=== PATIENT | female | born 1990 | race American Indian/Alaskan Native ===

== ENCOUNTER 2017-01-23 20:35 | Inpatient (IN) | payer MEDICAID ==
[2017-01-23] MEDS ORDERED: CERVIDIL VG ONE (21:50)
[2017-01-23] MEDS ORDERED: PHENERGAN PO PRN (21:50)
[2017-01-23] MEDS ORDERED: BRETHINE SUB-Q PRN (21:50)
[2017-01-23] MEDS ORDERED: NARCAN 0.4 MG/1 ML IV PRN (21:50)
[2017-01-23] MEDS ORDERED: ePHEDrine SULFATE IV PRN (21:50)
[2017-01-23] MEDS ORDERED: XYLOCAINE 2% INFILTRATI ONE (21:50)
[2017-01-23] MEDS ORDERED: SUBLIMAZE IV PRN (21:50)
[2017-01-23] MEDS ORDERED: BRETHINE IVP PRN (21:50)
[2017-01-23] MEDS ORDERED: MINERAL OIL PO PRN (21:50)
[2017-01-23] MEDS ORDERED: PITOCin/NS 20 UNIT/1000ML DRIP 20 UNITS/1,000 ML BAG IV SCH (22:00)
--- NOTE | 2017-01-23 22:07 | History and Physical Report ---
History of Present Illness Date of examination: 01/23/17 Date of admission: 01/23/17 20:38 Chief complaint: Incution of labor for postdates History of present illness: This is a 26 yo at 41weeks admitted for induction of labor for postdates. OB problem list 1. anemia -on iron 2. hx of placenta previa in 10/19 resolved per patient 3. UTI 4. THC in pergnancy 5. Asthma -mild 6. GBS + labs O+ ant neg H/H 10. pap normal Rubella non imm RPR neg HIV neg CF neg HGB electo AA glen neg chlam neg US 08/16 single viable IUP EGA 18 weeks final caitlin 01/16/17 anterior placenta 09/2016 pa EGA 21+1 weeks EFW 32% antaomy wnl left ovarian cyst h/h 10.330.8 DM 115 HIV neg PLT 224 RPR neg 12/19/16 [place] 36 weesk 35+4 weeks EFW 2763 BPP 8/8 GBS + Past History Past Medical History: asthma Past Surgical History: other (ovarian cystectomy ) [employer] History: abnormal PAP smear, chlamydia Family/Genetic History: none Social history: smoking - Obstetrical History Expected Date of Delivery: 01/16/17 Actual Gestation: 41 Week(s) 0 Day(s) : 2 Para: 2 Hx # Term Pregnancies: 1 Number of Pregnancies: 0 Spontaneous Abortions: 0 Induced : 0 Number of Living Children: 1 Medications and Allergies Allergies Allergy/AdvReac Type Severity Reaction Status Date / Time latex Allergy Rash Verified 04/26/15 18:24 Home Medications Medication Instructions Recorded Confirmed Last Taken Type HYDROcodone/APAP 7.5-325 [[place] 1 each PO Q6HR PRN #25 tablet 09/10/14 05/04/15 05/03/15 Rx 7.5/325 mg] ALBUTEROL Inhaler [Proair] 2 puff IH QID PRN 04/26/15 05/04/15 05/02/15 History Omeprazole [PriLOSEC] 20 mg PO BID 04/26/15 05/04/15 05/03/15 History Sucralfate [Carafate] 1 gm PO Q6HR 04/26/15 05/04/15 05/03/15 History Ibuprofen [Motrin] 800 mg PO Q8H PRN #60 tablet 05/04/15 Unknown Rx Oxycodone HCl/Acetaminophen 1 each PO Q6HR PRN #30 tablet 05/04/15 Unknown Rx [Percocet 7.5-325 mg] Review of Systems All systems: negative Constitutional: weight gain Eyes: deferred Ears, nose, mouth and throat: deferred Breasts: deferred Genitourinary: deferred, vaginal bleeding, leakage of fluid, dysuria, pelvic pain Rectal Exam: deferred Integumentary: deferred - Vital Signs Vital signs: Vital Signs Pulse BP Pulse Ox 94 H 117/65 99 01/23/17 21:00 01/23/17 21:00 01/23/17 21:00 Temp Pulse Resp BP Pulse Ox 92 H 117/65 98 01/23/17 21:35 01/23/17 21:00 01/23/17 21:35 - Physical Exam Breasts: Positive: normal Cardiovascular: Regular rate, Normal S1, Normal S2 Lungs: Positive: Clear to auscultation, Normal air movement Abdomen: Positive: normal appearance, soft, normal bowel sounds Genitourinary (Female): Positive: normal external genitalia, normal perenium Vulva: both: normal Vagina: Positive: normal moisture Uterus: Positive: enlarged Anus/Rectum: Positive: normal perianal skin Extremities: Positive: normal Deep Tendon Reflex Grade: Normal +2 - Obstetrical FHR: category 1 Uterine Contraction Monitor Mode: External Cervical Dilatation: 0 Cervical Effacement Percentage: 0 station: -4 Uterine Contraction Pattern: Irregular Uterine Tone Measurement Phase: Contraction Uterine Contraction Intensity: Mild Results All other labs normal.
[2017-01-23 22:47] LABS: Hematocrit 29.9 % (30.3-42.9); Mean Corpuscular HGB Conc 33 % (30-34); Mean Corpuscular Hemoglobin 30 pg (28-32); Mean Corpuscular Volume 91 fl (79-97); Platelet Count 234 K/mm3 (140-440); Red Cell Distribution Width 13.6 % (13.2-15.2); White Blood Count 10.2 K/mm3 (4.5-11.0)
[2017-01-23] MEDS: LACTATED RINGERS 1,000 ML IV SCH (23:35)
[2017-01-24] MEDS ORDERED: POLYCILLIN/NS 1 GM/50 ML 1 GM/50 ML BAG IV SCH (02:00)
[2017-01-24] MEDS: LACTATED RINGERS 1,000 ML IV SCH ×2 (04:50→05:35)
[2017-01-24] MEDS ORDERED: ePHEDrine SULFATE IV PRN (06:02)
[2017-01-24] MEDS ORDERED: BENADRYL IV PRN (06:02)
--- NOTE | 2017-01-24 06:02 | Anesthesia Consultation ---
Anesthesia Consult and Med Hx Date of service: 01/24/17 - Airway Anesthetic Teeth Evaluation: Good ROM Head & Neck: Adequate Mental/Hyoid Distance: Adequate Intubation Access Assessment: Probably Good - Pre-Operative Health Status ASA Pre-Surgery Classification: ASA3, Emergency Proposed Anesthetic Plan: Epidural, Spinal - Pulmonary Hx Asthma: Yes (last used inhaler 2 weeks ago; used past week-end) COPD: No Hx Pneumonia: No - Cardiovascular System Hx Hypertension: No - Central Nervous System Hx Seizures: No Hx Psychiatric Problems: Yes (Depression) - Gastrointestinal Hx Gastroesophageal Reflux Disease: Yes (out of meds, can lie flat without reflux; meds hellp) - Endocrine Hx Renal Disease: No Hx End Stage Renal Disease: No Hx Hypothyroidism: No Hx Hyperthyroidism: No - Hematic Hx Anemia: Yes Hx Sickle Cell Disease: No - Other Systems Hx Alcohol Use: Yes Hx Cancer: No
[2017-01-24] MEDS ORDERED: fentaNYL-BUPIV 2 MCG/ML-0.125% 200 MCG/100 ML BAG EPIDURAL SCH (07:00)
[2017-01-24] MEDS ORDERED: POLYCILLIN/NS 2 GM/100 ML 2 GM/100 ML BAG IV ONE (07:06)
[2017-01-24] MEDS ORDERED: ZOFRAN ONE (07:17)
[2017-01-24] MEDS: PITOCin/NS 30 UNIT/500ML 30 UNITS/500 ML BAG IV SCH ×4 (07:28→09:19)
--- NOTE | 2017-01-24 07:55 | Progress Note ---
Assessment and Plan A: IUP @ 41.1 Postdates Induction +GBS untreated Active Labor P: AROM EFW 7-5lbs Active mikael;t Subjective - Subjective Date of service: 01/24/17 Patient reports: movement normal, contractions, no new complaints, no loss of fluid, no vaginal bleeding Objective - Vital Signs Vital Signs: Vital Signs - 12hr 01/23/17 01/23/17 01/23/17 21:00 21:05 21:10 Temperature 98.4 F Pulse Rate 105 H 97 H 100 H Pulse Rate [ 94 H Right From Monitor] Respiratory 18 Rate Blood Pressure 117/65 Blood Pressure 117/65 [Right Arm] O2 Sat by Pulse 99 100 99 Oximetry 01/23/17 01/23/17 01/23/17 21:15 21:20 21:25 Temperature Pulse Rate 94 H 94 H 96 H Pulse Rate [ Right From Monitor] Respiratory Rate Blood Pressure Blood Pressure [Right Arm] O2 Sat by Pulse 99 99 99 Oximetry 01/23/17 01/23/17 01/23/17 21:30 21:35 23:13 Temperature Pulse Rate 102 H 92 H 95 H Pulse Rate [ Right From Monitor] Respiratory Rate Blood Pressure 120/63 Blood Pressure [Right Arm] O2 Sat by Pulse 98 98 100 Oximetry 01/23/17 01/23/17 01/23/17 23:18 23:23 23:28 Temperature Pulse Rate 96 H 98 H 91 H Pulse Rate [ Right From Monitor] Respiratory Rate Blood Pressure Blood Pressure [Right Arm] O2 Sat by Pulse 100 99 99 Oximetry 01/23/17 01/23/17 01/23/17 23:33 23:38 23:42 Temperature Pulse Rate 89 95 H 100 H Pulse Rate [ Right From Monitor] Respiratory Rate Blood Pressure 104/65 Blood Pressure [Right Arm] O2 Sat by Pulse 98 99 Oximetry 01/23/17 01/23/17 01/23/17 23:43 23:48 23:53 Temperature Pulse Rate 104 H 100 H 112 H Pulse Rate [ Right From Monitor] Respiratory Rate Blood Pressure Blood Pressure [Right Arm] O2 Sat by Pulse 98 98 100 Oximetry 01/23/17 01/24/17 01/24/17 23:58 00:03 00:08 Temperature Pulse Rate 102 H 89 91 H Pulse Rate [ Right From Monitor] Respiratory Rate Blood Pressure Blood Pressure [Right Arm] O2 Sat by Pulse 99 99 100 Oximetry 01/24/17 01/24/17 01/24/17 00:12 00:13 00:18 Temperature Pulse Rate 85 93 H 94 H Pulse Rate [ Right From Monitor] Respiratory Rate Blood Pressure 95/53 Blood Pressure [Right Arm] O2 Sat by Pulse 99 98 Oximetry 01/24/17 01/24/17 01/24/17 00:23 00:28 00:33 Temperature Pulse Rate 95 H 94 H 96 H Pulse Rate [ Right From Monitor] Respiratory Rate Blood Pressure Blood Pressure [Right Arm] O2 Sat by Pulse 98 98 98 Oximetry 01/24/17 01/24/17 01/24/17 00:38 00:42 00:43 Temperature Pulse Rate 93 H 92 H 95 H Pulse Rate [ Right From Monitor] Respiratory Rate Blood Pressure 118/56 Blood Pressure [Right Arm] O2 Sat by Pulse 98 97 Oximetry 01/24/17 01/24/17 01/24/17 00:48 00:53 00:58 Temperature Pulse Rate 92 H 93 H 89 Pulse Rate [ Right From Monitor] Respiratory Rate Blood Pressure Blood Pressure [Right Arm] O2 Sat by Pulse 97 97 99 Oximetry 01/24/17 01/24/17 01/24/17 01:00 01:03 01:08 Temperature 98.1 F Pulse Rate 91 H 95 H Pulse Rate [ Right From Monitor] Respiratory Rate Blood Pressure Blood Pressure [Right Arm] O2 Sat by Pulse 97 97 Oximetry 01/24/17 01/24/17 01/24/17 01:11 01:13 01:18 Temperature Pulse Rate 87 98 H 95 H Pulse Rate [ Right From Monitor] Respiratory Rate Blood Pressure 94/53 Blood Pressure [Right Arm] O2 Sat by Pulse 96 97 Oximetry 01/24/17 01/24/17 01/24/17 01:23 01:28 01:33 Temperature Pulse Rate 90 95 H 90 Pulse Rate [ Right From Monitor] Respiratory Rate Blood Pressure Blood Pressure [Right Arm] O2 Sat by Pulse 97 98 98 Oximetry 01/24/17 01/24/17 01/24/17 01:38 01:48 01:53 Temperature Pulse Rate 96 H 89 88 Pulse Rate [ Right From Monitor] Respiratory Rate Blood Pressure 113/67 Blood Pressure [Right Arm] O2 Sat by Pulse 98 100 98 Oximetry 01/24/17 01/24/17 01/24/17 01:58 02:03 02:08 Temperature Pulse Rate 93 H 89 96 H Pulse Rate [ Right From Monitor] Respiratory Rate Blood Pressure Blood Pressure [Right Arm] O2 Sat by Pulse 99 98 99 Oximetry 01/24/17 01/24/17 01/24/17 02:13 02:18 02:23 Temperature Pulse Rate 100 H 93 H 87 Pulse Rate [ Right From Monitor] Respiratory Rate Blood Pressure Blood Pressure [Right Arm] O2 Sat by Pulse 97 98 99 Oximetry 01/24/17 01/24/17 01/24/17 02:28 02:33 02:42 Temperature Pulse Rate 82 88 92 H Pulse Rate [ Right From Monitor] Respiratory Rate Blood Pressure Blood Pressure [Right Arm] O2 Sat by Pulse 97 98 100 Oximetry 01/24/17 01/24/17 01/24/17 02:47 02:52 02:56 Temperature Pulse Rate 86 82 61 Pulse Rate [ Right From Monitor] Respiratory Rate Blood Pressure Blood Pressure [Right Arm] O2 Sat by Pulse 98 99 87 Oximetry 01/24/17 01/24/17 01/24/17 02:57 03:02 03:03 Temperature Pulse Rate 88 87 Pulse Rate [ Right From Monitor] Respiratory 20 Rate Blood Pressure Blood Pressure [Right Arm] O2 Sat by Pulse 100 97 Oximetry 01/24/17 01/24/17 01/24/17 03:07 03:12 03:17 Temperature Pulse Rate 102 H 94 H 87 Pulse Rate [ Right From Monitor] Respiratory Rate Blood Pressure Blood Pressure [Right Arm] O2 Sat by Pulse 97 97 96 Oximetry 01/24/17 01/24/17 01/24/17 03:22 03:27 03:32 Temperature Pulse Rate 91 H 93 H 81 Pulse Rate [ Right From Monitor] Respiratory Rate Blood Pressure Blood Pressure [Right Arm] O2 Sat by Pulse 96 97 97 Oximetry 01/24/17 01/24/17 01/24/17 03:37 03:38 03:42 Temperature Pulse Rate 89 80 92 H Pulse Rate [ Right From Monitor] Respiratory Rate Blood Pressure 104/57 Blood Pressure [Right Arm] O2 Sat by Pulse 96 97 Oximetry 01/24/17 01/24/17 01/24/17 03:47 03:52 03:57 Temperature Pulse Rate 82 85 87 Pulse Rate [ Right From Monitor] Respiratory Rate Blood Pressure Blood Pressure [Right Arm] O2 Sat by Pulse 97 97 96 Oximetry 01/24/17 01/24/1701/24/17 04:02 04:07 04:12 Temperature Pulse Rate 87 83 86 Pulse Rate [ Right From Monitor] Respiratory Rate Blood Pressure Blood Pressure [Right Arm] O2 Sat by Pulse 95 96 99 Oximetry 01/24/17 01/24/17 01/24/17 04:17 04:23 04:28 Temperature Pulse Rate 96 H 82 83 Pulse Rate [ Right From Monitor] Respiratory Rate Blood Pressure Blood Pressure [Right Arm] O2 Sat by Pulse 100 100 100 Oximetry 01/24/17 01/24/17 01/24/17 04:33 04:38 04:40 Temperature Pulse Rate 70 70 76 Pulse Rate [ Right From Monitor] Respiratory Rate Blood Pressure 117/76 Blood Pressure [Right Arm] O2 Sat by Pulse 100 100 Oximetry 01/24/17 01/24/17 01/24/17 04:43 04:48 04:53 Temperature Pulse Rate 78 77 78 Pulse Rate [ Right From Monitor] Respiratory Rate Blood Pressure Blood Pressure [Right Arm] O2 Sat by Pulse 100 100 100 Oximetry 01/24/17 01/24/17 01/24/17 04:58 05:03 05:11 Temperature Pulse Rate 81 78 78 Pulse Rate [ Right From Monitor] Respiratory Rate Blood Pressure Blood Pressure [Right Arm] O2 Sat by Pulse 100 100 100 Oximetry 01/24/17 01/24/17 01/24/17 05:16 05:21 05:26 Temperature Pulse Rate 83 84 79 Pulse Rate [ Right From Monitor] Respiratory Rate Blood Pressure Blood Pressure [Right Arm] O2 Sat by Pulse 100 100 100 Oximetry 01/24/17 01/24/17 01/24/17 05:31 05:36 05:39 Temperature Pulse Rate 81 84 82 Pulse Rate [ Right From Monitor] Respiratory Rate Blood Pressure 147/69 Blood Pressure [Right Arm] O2 Sat by Pulse 99 100 Oximetry 01/24/17 01/24/17 01/24/17 05:40 05:41 05:42 Temperature Pulse Rate 83 74 75 Pulse Rate [ Right From Monitor] Respiratory Rate Blood Pressure 121/59 Blood Pressure [Right Arm] O2 Sat by Pulse 91 100 Oximetry 01/24/17 01/24/17 01/24/17 05:44 05:46 05:48 Temperature Pulse Rate 81 81 70 Pulse Rate [ Right From Monitor] Respiratory Rate Blood Pressure 110/58 108/58 108/61 Blood Pressure [Right Arm] O2 Sat by Pulse 100 Oximetry 01/24/17 01/24/17 01/24/17 05:50 05:51 05:52 Temperature Pulse Rate 73 73 72 Pulse Rate [ Right From Monitor] Respiratory Rate Blood Pressure 108/61 105/61 Blood Pressure [Right Arm] O2 Sat by Pulse 100 Oximetry 01/24/17 01/24/17 01/24/17 05:54 05:56 06:00 Temperature Pulse Rate 71 86 67 Pulse Rate [ Right From Monitor] Respiratory Rate Blood Pressure 111/60 105/57 106/58 Blood Pressure [Right Arm] O2 Sat by Pulse 100 84 Oximetry 01/24/17 01/24/17 01/24/17 06:01 06:06 06:11 Temperature Pulse Rate 71 80 72 Pulse Rate [ Right From Monitor] Respiratory Rate Blood Pressure Blood Pressure [Right Arm] O2 Sat by Pulse 100 99 100 Oximetry 01/24/17 01/24/17 01/24/17 06:16 06:18 06:20 Temperature Pulse Rate 80 75 64 Pulse Rate [ Right From Monitor] Respiratory Rate Blood Pressure 155/56 116/68 Blood Pressure [Right Arm] O2 Sat by Pulse 100 Oximetry 01/24/17 01/24/17 01/24/17 06:21 06:25 06:26 Temperature 96.9 F L Pulse Rate 77 68 Pulse Rate [ Right From Monitor] Respiratory Rate Blood Pressure Blood Pressure [Right Arm] O2 Sat by Pulse 100 100 Oximetry 01/24/17 01/24/17 01/24/17 06:31 06:36 06:41 Temperature Pulse Rate 79 70 75 Pulse Rate [ Right From Monitor] Respiratory Rate Blood Pressure 119/75 Blood Pressure [Right Arm] O2 Sat by Pulse 99 99 98 Oximetry 01/24/17 01/24/17 01/24/17 06:46 06:51 06:56 Temperature Pulse Rate 72 84 73 Pulse Rate [ Right From Monitor] Respiratory Rate Blood Pressure 110/68 Blood Pressure [Right Arm] O2 Sat by Pulse 100 99 100 Oximetry 01/24/17 01/24/17 01/24/17 07:02 07:04 07:07 Temperature Pulse Rate 84 72 86 Pulse Rate [ Right From Monitor] Respiratory Rate Blood Pressure 112/66 109/63 Blood Pressure [Right Arm] O2 Sat by Pulse 100 100 Oximetry 01/24/17 01/24/17 01/24/17 07:12 07:16 07:17 Temperature Pulse Rate 81 92 H 88 Pulse Rate [ Right From Monitor] Respiratory Rate Blood Pressure 113/73 Blood Pressure [Right Arm] O2 Sat by Pulse 100 100 Oximetry 01/24/17 01/24/17 01/24/17 07:22 07:28 07:31 Temperature 97.7 F Pulse Rate 74 86 Pulse Rate [ 78 Right From Monitor] Respiratory 18 Rate Blood Pressure Blood Pressure 113/73 [Right Arm] O2 Sat by Pulse 100 100 100 Oximetry 01/24/17 01/24/17 01/24/17 07:32 07:33 07:37 Temperature Pulse Rate 83 89 91 H Pulse Rate [ Right From Monitor] Respiratory Rate Blood Pressure 109/59 Blood Pressure [Right Arm] O2 Sat by Pulse 100 100 Oximetry 01/24/17 07:43 Temperature Pulse Rate 75 Pulse Rate [ Right From Monitor] Respiratory Rate Blood Pressure Blood Pressure [Right Arm] O2 Sat by Pulse 100 Oximetry - Exam Abdomen: Present: normal appearance, soft, normal bowel sounds Vulva: both: normal Uterus: Present: normal, firm. Absent: bogginess, tenderness FHR: auscultation normal, category 1 FHR comments: category 1 Uterine Contraction Monitor Mode: External Cervical Dilatation: 4 Cervical Effacement Percentage: 80 station: -3 Uterine Contraction Frequency (min): 4 Uterine Contraction Pattern: Regular Uterine Tone Measurement Phase: Resting Uterine Contraction Intensity: Moderate - Labs Labs: Abnormal Labs 01/23/17 21:55 RBC 3.30 L Hgb 10.0 L Hct 29.9 L Laboratory Results - last 24 hr 01/23/17 01/23/17 21:55 21:55 WBC 10.2 RBC 3.30 L Hgb 10.0 L Hct 29.9 L MCV 91 MCH 30 MCHC 33 RDW 13.6 Plt Count 234 Blood Type O POSITIVE Antibody Screen Negative
--- NOTE | 2017-01-24 10:20 | Ultrasound Report ---
BIOPHYSICAL PROFILE: 2 - breathing movements 2 - movements 2 - posture and tone 2 - Qualitative amniotic fluid volume 8 - TOTAL SCORE OF POSSIBLE 8 Heart Rate (bpm) 145 Gestation: Single Position: Cephalic Amniotic Fluid: SOLIS = 24.6 cm Placenta: Anterior Placental Grade: 2 Heart Rate: 150 BPM Cervical length: 3.4 cm (Normal > 3 cm) It is too early for a anatomical survey BPD: 9.5 cm = 38 w 6 d HC: 35.02 cm = 40 w 5 d AC: 31.3 cm = 41 w 2 d FL: 7.7 cm = 39 w 5 d HC/AC Ratio: 0.94 Cephalic Index: 79.5 Estimated Weight: 4117 grams LMP: 04/11/16 Clinical age = 41 w 0 d EDC: 01/16/17 US Gest. Age = 40 w 1 d EDC: T
--- NOTE | 2017-01-24 13:38 | Procedure Note ---
OB Delivery Note - Delivery Date of Delivery: 01/24/17 (8-12oz male @ 1202) Surgeon: JACLYN WHEELER Estimated blood loss: 300cc - Vaginal Delivery presentation: vertex Delivery position: OA Intrapartum events: none Delivery induction: cervidil Delivery augmentation: rupture of membranes, pitocin Delivery monitor: external FHT, external uterine Route of delivery: Delivery placenta: spontaneous Delivery cord: 3 umbilical vessels Episiotomy: none Delivery laceration: other (left labia, not bleeding not repaired) Anesthesia: epidural - Infant A at 1 minute: 8 at 5 minutes: 9 Infant Gender: Male (Pushed for viable male infant. Dried, buld suctioned, placed skin to skin. Spont. placenta, Pitocin infusing. Fundus messaged firm, 3 below U, ML. Bleeding scant. Pressure applied to laceration for hemostatis. EBL 300. +GBS adequate treatment prior to delivery.)
[2017-01-24] MEDS ORDERED: BENADRYL PO PRN (13:40)
[2017-01-24] MEDS ORDERED: PHENERGAN PO PRN (13:40)
[2017-01-24] MEDS ORDERED: ZOFRAN IV PRN (13:40)
[2017-01-24] MEDS ORDERED: NORCO 5/325 PO PRN ×2 (13:40→17:27)
[2017-01-24] MEDS ORDERED: TUCKS PAD TP PRN (13:40)
[2017-01-24] MEDS ORDERED: TYLENOL PO PRN (13:40)
[2017-01-24] MEDS ORDERED: LANSINOH TP PRN (13:40)
[2017-01-24] MEDS ORDERED: DULCOLAX PR PRN (13:40)
[2017-01-24] MEDS ORDERED: PHENERGAN PR PRN (13:40)
[2017-01-24] MEDS ORDERED: MILK OF MAGNESIA PO PRN (13:40)
[2017-01-24] MEDS ORDERED: DERMOPLAST TP PRN (13:40)
[2017-01-24] MEDS ORDERED: SODIUM CHLORIDE FLUSH SYRINGE 10 ML IV NR (14:00)
[2017-01-24] MEDS ORDERED: METHERGINE IM ONE (17:21)
[2017-01-24] MEDS ORDERED: CYTOTEC PR ONE (17:21)
[2017-01-24] MEDS ORDERED: TORADOL ONE (17:53)
[2017-01-24] MEDS ORDERED: PITOCIN IV SCH (18:00)
[2017-01-24] MEDS ORDERED: D5LR IV SCH (18:00)
[2017-01-24] MEDS ORDERED: TORADOL IV ONE (18:16)
--- NOTE | 2017-01-24 18:27 | Event Note ---
Date: 01/24/17 Called by RN reporting patient having heavy vaginal bleeding and passage of clots. Ambulated to bathroom and voided x 2. Arrived at BS patient stable, denies syncope or vertigo. On exam lochia heavy. FF right of U and 2 above. Vaginal exam, multiple moderate sized clots successfully expressed. FF @ U, ML after expression. patient up to void. Continues to be asymptomatic. Pitocin infusing IV, Methergine 0.2mg given IM, Cytotec 800mcg TN per RN given. will start Methergine po and get stat H/H>
[2017-01-24] MEDS ORDERED: MORPHINE IV ONE (19:00)
[2017-01-24 19:08] LABS: Hematocrit 27.6 % (30.3-42.9); Hemoglobin 8.9 gm/dl (10.1-14.3)
[2017-01-24] MEDS: MOTRIN PO SCH ×2 (19:09→20:00)
[2017-01-24] MEDS: PERCOCET 5/325 PO PRN (22:14)
[2017-01-24] MEDS: FEOSOL PO SCH ×2 (22:15→23:50)
[2017-01-24] MEDS: COLACE PO SCH (22:15)
[2017-01-25] MEDS: METHERGINE PO SCH ×3 (02:42→19:00)
[2017-01-25] MEDS: PERCOCET 5/325 PO PRN ×2 (02:49→16:30)
[2017-01-25] MEDS ORDERED: BOOSTRIX IM ONE (06:00)
[2017-01-25] MEDS ORDERED: M-M-R II VACCINE SUB-Q ONE (06:00)
--- NOTE | 2017-01-25 07:48 | Progress Note ---
Assessment and Plan PPD#1 s/p with PP hemorrhage asymptomatic acute anemia hgb 10-8.9-8.0 stable bottle feeding rh+ no rhogam indicated pain 07/14 percocet not working ( all to motrin) change to hydromorphone 2mg q4 continue PP course decreased bleeding ( uterus firm below umbilicus ) consdier d/c home tomorrow Subjective - Subjective Date of service: 01/25/17 Principal diagnosis: s/p PPD#1 Interval history: This is a 26 yo at 41weeks admitted for induction of labor for postdates. OB problem list 1. anemia -on iron 2. hx of placenta previa in 10/19 resolved per patient 3. UTI 4. THC in pergnancy 5. Asthma -mild 6. GBS + labs O+ ant neg H/H 10. pap normal Rubella non imm RPR neg HIV neg CF neg HGB electo AA glen neg chlam neg US 08/16 single viable IUP EGA 18 weeks final caitlin 01/16/17 anterior placenta 09/2016 pa EGA 21+1 weeks EFW 32% antaomy wnl left ovarian cyst h/h 10.3/30.8 DM 115 HIV neg PLT 224 RPR neg 12/19/16 [place] 36 weesk 35+4 weeks EFW 2763 BPP 8 GBS + Patient reports: appetite normal, voiding normally, pain well controlled, flatus , ambulating normally [place]: doing well Objective - Vital Signs Latest vital signs: Vital Signs Temp Pulse Pulse Resp BP BP Pulse Ox 01/25/17 02:49 18 01/25/17 00:00 98.8 F 72 20 107/52 01/24/17 22:14 18 01/24/17 20:00 99.4 F 80 20 121/72 01/24/17 17:10 98.2 F 68 18 126/77 01/24/17 13:25 98.1 F 78 16 118/76 01/24/17 12:50 84 113/60 01/24/17 12:27 97.6 F 101/57 01/24/17 12:20 85 96/51 01/24/17 12:06 85 101/57 01/24/17 11:59 90 100 01/24/17 11:53 118 H 100 01/24/17 11:51 96 H 108/71 01/24/17 11:48 96 H 100 01/24/17 11:43 86 100 01/24/17 11:38 92 H 100 01/24/17 11:33 81 100 01/24/17 11:28 95 H 100 01/24/17 11:23 85 100 01/24/17 11:21 86 109/57 83 L 01/24/17 11:18 84 100 01/24/17 11:13 87 100 01/24/17 11:08 82 100 01/24/17 11:03 79 100 01/24/17 10:58 84 100 01/24/17 10:53 79 100 01/24/17 10:51 78 108/59 01/24/17 10:48 86 100 01/24/17 10:43 82 100 01/24/17 10:38 79 100 01/24/17 10:33 79 100 01/24/17 10:28 82 100 01/24/17 10:23 80 100 01/24/17 10:21 81 102/60 01/24/17 10:18 83 99 01/24/17 10:13 71 100 01/24/17 10:08 75 99 01/24/17 10:03 74 98 01/24/17 09:58 68 98 01/24/17 09:53 72 99 01/24/17 09:51 73 97/55 01/24/17 09:48 75 99 01/24/17 09:43 73 99 01/24/17 09:38 80 99 01/24/17 09:33 70 99 01/24/17 09:28 74 99 01/24/17 09:23 74 100 01/24/17 09:22 67 90/52 01/24/17 09:18 74 98 01/24/17 09:13 88 99 01/24/17 09:08 79 98 01/24/17 09:02 74 97 01/24/17 08:58 75 98 01/24/17 08:53 75 98 01/24/17 08:48 79 98 01/24/17 08:45 75 93/52 01/24/17 08:43 77 98 01/24/17 08:41 71 95/53 01/24/17 08:38 71 99 01/24/17 08:34 84 76/47 01/24/17 08:33 75 99 01/24/17 08:32 75 88/52 01/24/17 08:28 76 98 01/24/17 08:23 76 98 01/24/17 08:18 74 98 01/24/17 08:16 72 98/56 01/24/17 08:13 82 100 01/24/17 08:08 71 100 01/24/17 08:03 68 100 01/24/17 08:01 69 95/55 01/24/17 07:58 90 100 01/24/17 07:53 85 100 01/24/17 07:48 88 100 01/24/17 07:47 86 107/55 01/24/17 07:43 75 100 Intake and Output 01/24/17 01/25/17 01/25/17 22:59 06:59 14:59 Intake Total 870 875 Output Total 700 400 Balance 170 475 Intake: IV 310 635 D5lr 1,000 ml @ 125 mls/ 310 635 hr IV DIRECT SHANICE with PITOCin 20 UNIT Rx#: [id number] Oral 560 240 Output: Urine 700 400 Void 700 400 Other: Total, Intake Amount 200 240 Total, Output Amount 300 400 # Voids Void 1 1 - Exam Breasts: Present: normal Cardiovascular: Present: Regular rate, Normal S1 Lungs: Present: Clear to auscultation, Normal air movement Abdomen: Present: normal appearance, soft, normal bowel sounds. Absent: distention, tenderness Vulva: both: normal Uterus: Present: normal, firm, fundal height below umbilicus Extremities: Present: normal Deep Tendon Reflex Grade: Normal +2 - Labs Labs: Abnormal lab results 01/24/17 01/25/17 Range/Units 18:34 06:14 Hgb 8.9 L 8.0 L (10.1-14.3) gm/dl Hct 27.6 L 25.0 L (30.3-42.9) %
[2017-01-25] MEDS: FEOSOL PO SCH ×2 (08:39→14:14)
[2017-01-25] MEDS: DILAUDID PO PRN ×4 (08:39→20:43)
--- NOTE | 2017-01-25 09:33 | Progress Note ---
Subjective Date of service: 01/25/17 Principal diagnosis: s/p PPD#1 Interval history: 1st day after normal vaginal delivery Patient is in the bed, comfortable. Pain is controlled with pain meds. Ambulated well. No residual neurological deficit. No anesthesia complications Objective - Constitutional Vitals: Vital Signs - 12hr 01/24/17 01/25/17 01/25/17 22:14 00:00 02:49 Temperature 98.8 F Pulse Rate [ 72 Right From Monitor] Pulse Rate [ Right Radial] Respiratory 18 20 18 Rate Blood Pressure 107/52 [Right Arm] 01/25/17 08:33 Temperature 98.1 F Pulse Rate [ Right From Monitor] Pulse Rate [ 74 Right Radial] Respiratory 18 Rate Blood Pressure 108/60 [Right Arm] - Labs CBC & Chem 7: 01/25/17 06:14 Labs: Abnormal lab results 01/24/17 01/25/17 Range/Units 18:34 06:14 Hgb 8.9 L 8.0 L (10.1-14.3) gm/dl Hct 27.6 L 25.0 L (30.3-42.9) %
[2017-01-25] MEDS: COLACE PO SCH (10:47)
[2017-01-26] MEDS: METHERGINE PO SCH ×2 (00:57→10:28)
[2017-01-26] MEDS: FEOSOL PO SCH ×2 (00:58→10:25)
[2017-01-26] MEDS: DILAUDID PO PRN ×2 (00:58→06:30)
[2017-01-26] MEDS: COLACE PO SCH ×2 (00:58→10:26)
[2017-01-26] MEDS: PERCOCET 5/325 PO PRN (07:54)
[2017-01-26] MEDS: MOTRIN PO SCH ×2 (07:54→15:03)
--- NOTE | 2017-01-26 12:44 | Progress Note ---
Assessment and Plan ppd 2 s/p . Doing well. Plan for discharge on today. Subjective - Subjective Date of service: 01/26/17 Principal diagnosis: s/p PPD#1 Patient reports: appetite normal, voiding normally, pain well controlled, ambulating normally [place]: doing well Objective - Vital Signs Latest vital signs: Vital Signs Temp Pulse Resp Resp BP 01/26/17 08:40 98.1 F 80 20 108/63 01/26/17 06:30 18 01/26/17 00:58 18 01/26/17 00:30 98.4 F 67 18 94/68 01/25/17 20:43 18 18 Intake and Output 01/25/17 01/26/17 01/26/17 22:59 06:59 14:59 Intake Total 240 480 120 Balance 240 480 120 Intake: Oral 240 480 120 Other: Total, Intake Amount 240 240 120 Voiding Method Toilet Toilet # Voids Void 1 1 1 - Exam Breasts: Present: deferred Cardiovascular: Present: Regular rate, Normal S1, Normal S2 Lungs: Present: Clear to auscultation, Normal air movement Abdomen: Present: normal appearance, soft, normal bowel sounds Vulva: both: normal Uterus: Present: normal, firm Extremities: Present: normal
--- NOTE | 2017-01-26 12:45 | Discharge Summary ---
Providers - Providers Date of Admission: 01/23/17 20:38 Date of discharge: 01/26/17 Attending physician: LANETTE CHANDLER MD Primary care physician: LANETTE CHANDLER MD Hospitalization Reason for admission: active labor Delivery: Discharge diagnosis: IUP at term delivered [place] baby: male Hospital course: Unremarkable Condition at discharge: Good Disposition: DISCHARGED TO HOME OR SELFCARE Plan - Discharge Medications Prescriptions: Docusate Sodium [Colace] 100 mg PO BID PRN #30 capsule PRN Reason: Constipation Ferrous Sulfate [Feosol 325 MG tab] 325 mg PO TID #60 tablet Ibuprofen [Motrin] 600 mg PO Q8H PRN #30 tablet PRN Reason: Pain oxyCODONE /ACETAMINOPHEN [Percocet 5/325] 1 tab PO Q6HR PRN #20 tablet PRN Reason: Pain - Provider Discharge Summary Activity: routine, no sex for 6 weeks, no heavy lifting 4 weeks, no strenuous exercise Diet: routine Instructions: routine Additional instructions: [] Smoking cessation referral if applicable(refer to patient education folder for contact #) [] Refer to [facility]'s [facility] Booklet Call your doctor immediately for: * Fever > 100.5 * Heavy vaginal bleeding ( >1 pad per hour) * Severe persistent headache * Shortness of breath * Reddened, hot, painful area to leg or breast * Drainage or odor from incision. * Keep incision clean and dry at all times and follow doctor's instructions regarding bathing/showering - Follow up plan Follow up: LANETTE CHANDLER MD [Primary Care Provider] - 7 Days
[2017-01-26 13:16] VITALS: BP 110/67
== END 2017-01-26 13:45 | disposition home or self-care (01) | DRG 774 ==
LOC: TRG 20:35 → LD 20:38 → OB 01-24 13:38
PROVIDERS: ADMIT Obstetrics & Gynecology; ATTEND Obstetrics & Gynecology
PROC: 10E0XZZ Delivery of Products of Conception, External Approach (ICD-10-PCS; principal; 2017-01-23)
PROC: 00HU33Z Insertion of Infusion Device into Spinal Canal, Percutaneous Approach (ICD-10-PCS; 2017-01-23)
PROC: 3E0R3CZ (ICD-10-PCS; 2017-01-23)
PROC: 3E0P7GC Introduction of Other Therapeutic Substance into Female Reproductive, Via Natural or Artificial Opening (ICD-10-PCS; 2017-01-23)
DX: O48.0 Post-term pregnancy (principal); O72.1 Other immediate postpartum hemorrhage; O99.02 Anemia complicating childbirth; D64.9 Anemia, unspecified; O99.824 Streptococcus B carrier state complicating childbirth; O99.52 Diseases of the respiratory system complicating childbirth; J45.909 Unspecified asthma, uncomplicated; O99.62 Diseases of the digestive system complicating childbirth; O99.344 Other mental disorders complicating childbirth; F32.9 Major depressive disorder, single episode, unspecified; K21.9 Gastro-esophageal reflux disease without esophagitis; Z3A.41 41 weeks gestation of pregnancy; Z37.0 Single live birth; Z91.040 Latex allergy status
CPT/HCPCS: 36415; 76816; 76819; 85014; 85018; 85027; 86850; 86900; 86901; 99211; A6250; G0463; J0290; J1885; J2210; J2270; J2405; J2590; J3010; J7120; J7121

== ENCOUNTER 2019-10-12 16:09 | Emergency (ER) | payer SELFPAY ==
--- NOTE | 2019-10-12 17:13 | Emergency Department Report ---
Blank Doc - Documentation Documentation: 28-year-old female that presents with right sided chest pain with right arm ti ngling sensation. Denies any SOB. This initial assessment/diagnostic orders/clinical plan/treatment(s) is/are subject to change based on patient's health status, clinical progression and re-assessment by fellow clinical providers in the ED. Further treatment and workup at subsequent clinical providers discretion. Patient/guardians urged not to elope from the ED as their condition may be serious if not clinically assessed and managed. Initial orders include: 1- Patient sent to [facility] for further evaluation and treatment 2- EKG 3- CXR
--- NOTE | 2019-10-12 18:15 | XRay Report ---
CHEST 2 VIEWS INDICATION: cp. COMPARISON: None. FINDINGS: Support devices: None. Heart: Within normal limits. Lungs/Pleura: No acute air space or interstitial disease. No significant pleural effusion. IMPRESSION: No acute findings. Signer Name: Enrique Barrios MD Signed: 10/12/2019 6:10 PM Workstation Name: [id number]
[2019-10-12] MEDS ORDERED: DICYCLOMINE 20 MG TAB PO ONE (19:43)
[2019-10-12] MEDS ORDERED: CYCLOBENZAPRINE 10 MG TAB PO ONE (19:43)
[2019-10-12] MEDS ORDERED: LIDOCAINE VISCOUS 2% 15 ML ORAL LIQD PO ONE (19:43)
[2019-10-12] MEDS ORDERED: ALUM-MAG HYDROXIDE-SIMETHICONE 200-200-20MG/5ML ORAL LIQD 30 ML PO ONE (19:43)
[2019-10-12 20:15] LABS: Basophils # (Auto) 0.1 K/mm3 (0.0-0.1); Basophils % (Auto) 0.7 % (0.0-1.8); Eosinophils # (Auto) 0.1 K/mm3 (0.0-0.4); Hematocrit 36.2 % (30.3-42.9); Hemoglobin 12.4 gm/dl (10.1-14.3); Lymphocytes # (Auto) 3.3 K/mm3 (1.2-5.4); Lymphocytes % (Auto) 36.8 % (13.4-35.0); Mean Corpuscular HGB Conc 34 % (30-34); Mean Corpuscular Volume 92 fl (79-97); Monocytes # (Auto) 0.3 K/mm3 (0.0-0.8); Monocytes % (Auto) 3.5 % (0.0-7.3); Platelet Count 289 K/mm3 (140-440); Red Blood Count 3.95 M/mm3 (3.65-5.03); Red Cell Distribution Width 13.7 % (13.2-15.2)
[2019-10-12 20:32] LABS: Alanine Aminotransferase 13 units/L (7-56); Albumin 4.7 g/dL (3.9-5); BUN/Creatinine Ratio 11; Blood Urea Nitrogen 9 mg/dL (7-17); Calcium 9.5 mg/dL (8.4-10.2); Hemolysis Index 6
--- NOTE | 2019-10-12 20:34 | Emergency Department Report ---
ED General Adult HPI - General Chief complaint: Chest Pain Stated complaint: CHEST PAIN/NUMB Time Seen by Provider: 10/12/19 17:12 Source: patient Mode of arrival: Ambulatory Limitations: No Limitations - History of Present Illness Initial comments: Patient is a 28-year-old female presents emergency room with complaints of right-sided chest pain intermittently for the last 2-3 months. She describes the pain as a burning sensation. She states the pain is worse with palpation and movement. Patient states that she has also had discomfort in her right upper arm with occasional tingling. She states she also has intermittent nausea. the patient states she has had these symptoms since having implanted control in the right upper arm. She denies any vomiting, fever, shortness of breath, leg swelling, any other symptoms. She states her last mental cycle was a week ago. She has a past medical history of asthma, anxiety, depression, GERD. She denies any allergies medications. Patient is a non-smoker and occasional drinker. - Related Data Home Medications Medication Instructions Recorded Confirmed Last Taken ALBUTEROL Inhaler (OR & NICU) 2 puff IH QID PRN 04/26/15 01/24/17 05/02/15 [Proair] Omeprazole [PriLOSEC] 20 mg PO BID 04/26/15 01/24/17 05/03/15 Sucralfate [Carafate] 1 gm PO Q6HR 04/26/15 01/24/17 05/03/15 Previous Rx's Medication Instructions Recorded Last Taken Type HYDROcodone/APAP 7.5-325 [[place] 1 each PO Q6HR PRN #25 tablet 09/10/14 05/03/15 Rx 7.5/325 mg] Ibuprofen [Motrin] 800 mg PO Q8H PRN #60 tablet 05/04/15 Unknown Rx Oxycodone HCl/Acetaminophen 1 each PO Q6HR PRN #30 tablet 05/04/15 Unknown Rx [Percocet 7.5-325 mg] Docusate Sodium [Colace] 100 mg PO BID PRN #30 capsule 01/25/17 Unknown Rx Ferrous Sulfate [Feosol 325 MG tab] 325 mg PO TID #60 tablet 01/25/17 Unknown Rx Ibuprofen [Motrin] 600 mg PO Q8H PRN #30 tablet 01/25/17 Unknown Rx oxyCODONE /ACETAMINOPHEN [Percocet 1 tab PO Q6HR PRN #20 tablet 01/25/17 Unknown Rx 5/325] Cyclobenzaprine [Flexeril] 10 mg PO QHS PRN #12 tablet 10/12/19 Unknown Rx Famotidine [Pepcid] 40 mg PO QHS #30 tablet 10/12/19 Unknown Rx Sucralfate [Carafate] 1 gm PO Q6HR 7 Days #21 tablet 10/12/19 Unknown Rx Allergies Allergy/AdvReac Type Severity Reaction Status Date / Time latex Allergy Rash Verified 04/26/15 18:24 ED Review of Systems ROS: Stated complaint: CHEST PAIN/NUMB Other details as noted in HPI Comment: All other systems reviewed and negative ED Past Medical Hx - Past Medical History Hx Hypertension: No Hx Congestive Heart Failure: No Hx Diabetes: No Hx Deep Vein Thrombosis: No Hx GERD: Yes Hx Renal Disease: No Hx Sickle Cell Disease: No Hx Headaches / Migraines: Yes (chronic migraines) Hx Seizures: No Hx Psychiatric Treatment: Yes (anxiety) Hx Asthma: Yes (last used inhaler 2 weeks ago; used past week-end) Hx COPD: No Hx HIV: No - Surgical History Past Surgical History?: Yes Hx Appendectomy: Yes - Social History Smoking Status: Never Smoker - Medications Home Medications: Home Medications Medication Instructions Recorded Confirmed Last Taken Type HYDROcodone/APAP 7.5-325 [[place] 1 each PO Q6HR PRN #25 tablet 09/10/14 01/24/17 05/03/15 Rx 7.5/325 mg] ALBUTEROL Inhaler (OR & NICU) 2 puff IH QID PRN 04/26/15 01/24/17 05/02/15 History [Proair] Omeprazole [PriLOSEC] 20 mg PO BID 04/26/15 01/24/17 05/03/15 History Sucralfate [Carafate] 1 gm PO Q6HR 04/26/15 01/24/17 05/03/15 History Ibuprofen [Motrin] 800 mg PO Q8H PRN #60 tablet 05/04/15 01/24/17 Unknown Rx Oxycodone HCl/Acetaminophen 1 each PO Q6HR PRN #30 tablet 05/04/15 01/24/17 Unknown Rx [Percocet 7.5-325 mg] Docusate Sodium [Colace] 100 mg PO BID PRN #30 capsule 01/25/17 Unknown Rx Ferrous Sulfate [Feosol 325 MG tab] 325 mg PO TID #60 tablet 01/25/17 Unknown Rx Ibuprofen [Motrin] 600 mg PO Q8H PRN #30 tablet 01/25/17 Unknown Rx oxyCODONE /ACETAMINOPHEN [Percocet 1 tab PO Q6HR PRN #20 tablet 01/25/17 Unknown Rx 5/325] Cyclobenzaprine [Flexeril] 10 mg PO QHS PRN #12 tablet 10/12/19 Unknown Rx Famotidine [Pepcid] 40 mg PO QHS #30 tablet 10/12/19 Unknown Rx Sucralfate [Carafate] 1 gm PO Q6HR 7 Days #21 tablet 10/12/19 Unknown Rx ED Physical Exam - General Limitations: No Limitations General appearance: alert, in no apparent distress - Head Head exam: Present: atraumatic, normocephalic - Eye Eye exam: Present: normal appearance - ENT ENT exam: Present: mucous membranes moist - Respiratory Respiratory exam: Present: normal lung sounds bilaterally, chest wall tenderness (mild right, lateral anterior chest wall TTP, no crepitus, no deformity, no ecchymosis). Absent: respiratory distress, wheezes, rales, rhonchi, stridor, accessory muscle use, decreased breath sounds, prolonged expiratory - Cardiovascular Cardiovascular Exam: Present: regular rate, normal rhythm, normal heart sounds. Absent: systolic murmur, diastolic murmur, rubs, gallop - Extremities Exam Extremities exam: Present: other (implanted control is palpable in the right upper arm, no erythema, no edema, no increased warmth, no drainage, mild TTP, neurovascularly intact, FROM of the RUE) - Neurological Exam Neurological exam: Present: alert, oriented X3 - Psychiatric Psychiatric exam: Present: normal affect, normal mood - Skin Skin exam: Present: warm, dry, intact ED Course Vital Signs 10/12/19 20:45 Temperature 98.4 F Pulse Rate 78 Respiratory 18 Rate Blood Pressure 133/97 [Left] O2 Sat by Pulse 98 Oximetry ED Medical Decision Making - Lab Data Result diagrams: 10/12/19 19:50 10/12/19 19:50 Lab Results 10/12/19 10/12/19 Range/Units 19:50 19:50 WBC 8.9 (4.5-11.0) K/mm3 RBC 3.95 (3.65-5.03) M/mm3 Hgb 12.4 (10.1-14.3) gm/dl Hct 36.2 (30.3-42.9) % MCV 92 (79-97) fl MCH 32 (28-32) pg MCHC 34 (30-34) % RDW 13.7 (13.2-15.2) % Plt Count 289 (140-440) K/mm3 Lymph % (Auto) 36.8 H (13.4-35.0) % [place] % (Auto) 3.5 (0.0-7.3) % Eos % (Auto) 1.0 (0.0-4.3) % Baso % (Auto) 0.7 (0.0-1.8) % Lymph # 3.3 (1.2-5.4) K/mm3 [place] # 0.3 (0.0-0.8) K/mm3 Eos # 0.1 (0.0-0.4) K/mm3 Baso # 0.1 (0.0-0.1) K/mm3 Seg Neutrophils % 58.0 (40.0-70.0) % Seg Neutrophils # 5.1 (1.8-7.7) K/mm3 Sodium 138 (137-145) mmol/L Potassium 3.7 (3.6-5.0) mmol/L Chloride 103.1 (98-107) mmol/L Carbon Dioxide 19 L (22-30) mmol/L Anion Gap 20 mmol/L BUN 9 (7-17) mg/dL Creatinine 0.8 (0.7-1.2) mg/dL Estimated GFR > 60 ml/min BUN/Creatinine Ratio 11 % Glucose 102 H (65-100) mg/dL Calcium 9.5 (8.4-10.2) mg/dL Total Bilirubin 0.40 (0.1-1.2) mg/dL AST 16 (5-40) units/L ALT 13 (7-56) units/L Alkaline Phosphatase 71 (35-129) units/L Troponin T < 0.010 (0.00-0.029) ng/mL Total Protein 6.9 (6.3-8.2) g/dL Albumin 4.7 (3.9-5) g/dL Albumin/Globulin Ratio 2.1 % - EKG Data EKG shows normal: sinus rhythm, axis, intervals, QRS complexes, ST-T waves Rate: normal - Radiology Data Radiology results: report reviewed CHEST 2 VIEWS INDICATION: cp. COMPARISON: None. FINDINGS: Support devices: None. Heart: Within normal limits. Lungs/Pleura: No acute air space or interstitial disease. No significant pleural effusion. IMPRESSION: No acute findings. Signer Name: Enrique Barrios MD Signed: 10/12/2019 6:10 PM Workstation Name: [id number] Transcribed By: ES Dictated By: Enrique Barrios MD Electronically Authenticated By: Enrique Barrios MD Signed Date/Time: 10/12/191809 - Medical Decision Making Patient is a 28-year-old female presents emergency room with complaints of right-sided chest pain intermittently for the last 2-3 months. She describes the pain as a burning sensation. She states the pain is worse with palpation and movement. Patient states that she has also had discomfort in her right upper arm with occasional tingling. She states she also has intermittent nausea. the patient states she has had these symptoms since having implanted control in the right upper arm. She denies any vomiting, fever, shortness of breath, leg swelling, any other symptoms. She states her last mental cycle was a week ago. She has a past medical history of asthma, anxiety, depression, GERD. She denies any allergies medications. Patient is a non-smoker and occasional drinker. VSS. on exam: implanted control is palpable in the right upper arm, no erythema, no edema, no increased warmth, no drainage, mild TTP, neurovascularly intact, FROM of the RUE, mild right, lateral anterior chest wall TTP, no crepitus, no deformity, no ecchymosis. Labs are stable. Troponin is negative. EKG is within normal limits. CXR: No acute findings. Wells score is 0 PE highly unlikely. Heart score is 0. Given that chest pain is reproducible and worse with movement is likely to be musculoskeletal. pt given medications that she did not drive to the emergency department which improved her symptoms. Patient given prescription for Flexeril, Carafate, Pepcid. advised pt to please take medication as prescribed. Do not drive or operate machinery while taking muscle relaxer. May use ice pack, heating pad, rest, Epsom salt bath. Follow-up with a primary care doctor the next 2-3 days. Follow-up with your [employer] in the next 2-3 days and discuss your implanted control. Return to the emergency room for any new or worsening symptoms. - Differential Diagnosis costochondritis, GERD, ACS, PE, anxiety, valve dysfunction Critical care attestation.: If time is entered above; I have spent that time in minutes in the direct care of this critically ill patient, excluding procedure time. ED Disposition Clinical Impression: Atypical chest pain, Right upper limb pain Disposition: TO HOME OR SELFCARE Is pt being admited?: No Does the pt Need Aspirin: No Condition: Stable Instructions: Chest Pain (ED), Diet for Ulcers and Gastritis (ED), Gastroesophageal Reflux Disease (ED) Additional Instructions: Please take medication as prescribed. Do not drive or operate machinery while taking muscle relaxer. May use ice pack, heating pad, rest, Epsom salt bath. Follow-up with a primary care doctor the next 2-3 days. Follow-up with your [employer] in the next 2-3 days and discuss your implanted control. Return to the emergency room for any new or worsening symptoms. Prescriptions: Cyclobenzaprine [Flexeril] 10 mg PO QHS PRN #12 tablet PRN Reason: Muscle Spasm Famotidine [Pepcid] 40 mg PO QHS #30 tablet Sucralfate [Carafate] 1 gm PO Q6HR 7 Days #21 tablet Referrals: your, [employer] [Other] - 2-3 Days MATTHEW GÓMEZ MD [Staff Physician] - 2-3 Days Time of Disposition: 20:36 Print Language: GREEK
[2019-10-12] MEDS ORDERED: traMADol 50 MG TAB PO ONE (20:41)
[2019-10-13 05:13] VITALS: BP 133/97
== END 2019-10-12 20:45 | disposition home or self-care (01) ==
LOC: ED 16:09
DX: R07.89 Other chest pain (principal); M79.601 Pain in right arm; K21.9 Gastro-esophageal reflux disease without esophagitis; G43.909 Migraine, unspecified, not intractable, without status migrainosus; F41.9 Anxiety disorder, unspecified; J45.909 Unspecified asthma, uncomplicated; Z90.49 Acquired absence of other specified parts of digestive tract; Z79.899 Other long term (current) drug therapy; Z91.040 Latex allergy status
CPT/HCPCS: 36415; 71046; 80053; 84484; 85025; 93005; 93010